=== PATIENT | female | born 1990 | race Caucasian/White ===

== ENCOUNTER 2018-08-27 16:04 | Outpatient (CLI) | payer OTHER ==
[~2018-08-27] VITALS: Ht 154.9 cm; Wt 89.6 kg
[2018-08-27] MEDS ORDERED: PRENTAB9 PO (16:19)
[2018-08-27] MEDS ORDERED: ZANTTAB PO (16:20)
[2018-08-27] MEDS ORDERED: TUMS500C PO (16:21)
[2018-08-27] MEDS ORDERED: UNIS25TA3 PO (16:21)
[2018-08-27 16:23] VITALS: BP 107/73
[2018-08-27] MEDS ORDERED: FLUCONAZOLE 50MG TABLET PO ONE (17:15)
[2018-08-27 17:39] LABS: APPEARANCE, URINE HAZY (CLEAR); BACTERIA, URINE AUTO 1+ (NEGATIVE); BILIRUBIN, URINE AUTO NEGATIVE (NEGATIVE); BLOOD, URINE BLOOD NEGATIVE (NEGATIVE); CALCIUM OXALATE CRYSTALS SMALL; COLOR, URINE YELLOW (YELLOW); GLUCOSE, URINE (UA) AUTO NEGATIVE (NEGATIVE); KETONE, URINE AUTO NEGATIVE (NEGATIVE); LEUKOCYTE ESTERASE, URINE AUTO 3+ (NEGATIVE); MUCUS, URINE SMALL (NEGATIVE); NITRITE, URINE AUTO NEGATIVE (NEGATIVE); PROTEIN, URINE AUTO NEGATIVE (NEGATIVE); RBC, URINE AUTO 18 /HPF (0-3); SPECIFIC GRAVITY URINE AUTO 1.004 (1.002-1.035); SQUAMOUS EPITHELIAL CELL UR AU 6 /HPF (0-6); UROBILINOGEN, URINE AUTO 0.2 mg/dL (0.0-2.0); WBC, URINE AUTO 5 /HPF (0-3)
[2018-08-27 17:40] VITALS: BP 102/59
--- NOTE | 2018-08-27 18:05 | REPVR ---
EXAM: US Biophysical Profile Without Non-Stress Test EXAM DATE/TIME: 08/27/2018 5:36 PM CLINICAL HISTORY: 28 years old, female; Condition or disease; Other: Decreased movement, fhr changes; ; Additional info: 32 weeks with decreased mvmt, heart rate changes TECHNIQUE: Imaging protocol: US biophysical profile without non-stress testing. COMPARISON: No relevant prior studies available. FINDINGS: Breathin/2 Gross body movements: 2/2 tone: 2/2 Qualitative amniotic fluid: 2/2 Umbilical cord Doppler demonstrates a peak systolic velocity of 51 cm/s, end-diastolic velocity of 18 cm/s and S/D of 2.8 RI of 0.65. Amniotic fluid live index 12.7 cm. heart rate 150 beats per minute. Cephalic presentation. Anterior placenta without evidence of a placenta previa. IMPRESSION: Biophysical profile score 8 out of 8 Electronically signed by: Kwan Hebert On 08/27/2018 18:05:11 PM
[2018-08-27 18:32] VITALS: BP 109/55
[2018-08-27 18:57] LABS: CHLAMYDIA DNA AMPLIFICATION NEGATIVE (NEGATIVE); GC DNA AMPLIFICATION NEGATIVE (NEGATIVE)
== END 2018-08-27 19:32 | disposition home or self-care (01) ==
LOC: M LDO 16:04
PROVIDERS: ATTEND Obstetrics & Gynecology
DX: O36.8130 Decreased fetal movements, third trimester, not applicable or unspecified (principal); Z3A.31 31 weeks gestation of pregnancy; N89.8 Other specified noninflammatory disorders of vagina; B37.3 Candidiasis of vulva and vagina; R11.0 Nausea; O26.893 Other specified pregnancy related conditions, third trimester
CPT/HCPCS: 59025; 76815; 76819; 76820; 81001; 87086; 87661; G0378; G0463

== ENCOUNTER 2018-08-31 09:09 | Outpatient (CLI) | payer OTHER ==
[~2018-08-31] VITALS: Ht 154.9 cm; Wt 84.1 kg
[~2018-08-31 09:09] MED LIST: PRENTAB9 PO; TUMS500C PO; UNIS25TA3 PO; ZANTTAB PO
[2018-08-31 09:36] VITALS: BP 95/52
--- NOTE | 2018-08-31 11:16 | IPNPDOC ---
Text Note Date of Service The patient was seen on 08/31/18. NOTE [id number] @ 11:03 28 yo G1 @ 32+3 by LMP([id number]) and 9+4 wk US on [id number] presents from clinic for prolonged FHR monitoring d/t regular CTXs and periodic variable decelerations noted on NST in clinic. APFTs are being done d/t hx of late decelerations noted on L&D @ 31+6 wks. Steroid complete (Aug). Evaluated by Dr. Roger in clinic and found to be closed/50%/high today. S: Pt resting in triage bed. Notes regular CTXs. Denies DFM, LOF, and vaginal bleeding. O: VS- WNL, afebrile FHR-BL 140, moderate variability, + accels, intermittent variable decelerations CTX- Q 2-5 min, lasting <90 sec, palpated as mild, resting tone palpated as soft A: 28 yo G1 @ 32+3 with regular CTXs, reactive NST with intermittent variable decelerations. P: Continue to monitor and assess. reassess in 4 hours or prn. [id number] @ 1455 S: Resting in triage bed. Notes CTXs. Denies DFM, LOF, and vaginal bleeding O: VS- WNL, afebrile FHR- BL-145, moderate variability, + accels, intermittent variable decelerations CTX- irregular, Lasting <90 sec, resting tone palpated as soft A: 28 you G1 @ 32+3 with irregular CTXs, Intermittent variable decelerations P: Continue to monitor and assess. reassess in 4 hours or prn [id number] @ 1630 RN called requesting Tums for patient. Ordered per request. [id number] @ 1918 S: Resting in triage bed. Continues to feel CTXs O: VS- WNL, febrile FHR- 150, moderate variability, + accels, intermittent variable decelerations CTXs- irregular, 6-10 min, lasting < 90 sec A: 28 yo G1 @ 32+3 with irregular CTXs, reactive NST with intermittent variable decelerations(CAT II) P: Cont to monitor and assess SBAR to Dr. Roger @ 1930 VS,[place], I+O VS, [place], I+O Vital Signs Date Time Temp Pulse Resp B/P (MAP) Pulse Ox O2 Delivery O2 Flow Rate FiO2 08/31/18 09:36 98.4 62 18 95/52 (66) GERALDO GASTON Aug 31, 2018 11:16
[2018-08-31 11:27] VITALS: BP 108/58
[2018-08-31 14:59] VITALS: BP 97/55
[2018-08-31] MEDS ORDERED: CALCIUM CARBONATE 500 MG CHEW U/D PO ONE (16:45)
[2018-08-31 16:54] VITALS: BP 101/56
[2018-08-31 19:08] VITALS: BP 108/52
[2018-08-31 21:32] VITALS: BP 109/58
--- NOTE | 2018-08-31 22:31 | IPNPDOC ---
Text Note Date of Service The patient was seen on 08/31/18. NOTE Triage Note Pushpa is a 28yo at 32w3d by LMP c/w 9wk u/s who presented to clinic this morning for routine APFT and was found to have regular ctx and a few variable FHR decels. APFTs are being done d/t hx of a prolonged decel noted on L&D @ 31+6 wks when she presented for DFM. She received prolonged monitoring during that stay and was made steroid complete (Aug), but ultimately discharged with plan for 2x/wk APFTs. In clinic today SCE was performed by me: closed/50%/high and TAUS was performed which showed cephalic, KMY 13cm, +FCA/FM and BPP 8/10. She was sent to L&D for prolonged monitoring and received >8hr of monitoring which was all reassuring. She notes ctx have spaced out, she feels good movement, no LOF/vaginal bleeding. Vitals wnl, afebrile Resting in bed comfortably SCE- see HPI FHRT: Cat I with +accels, mod darian, no further decels [place]: very irregular ctx Plan: -safe for discharge home -keep next NST appt on Tuesday -discussed return precautions at length Dr. Diane Roger MD A-FIB/CHADSVASC A-FIB History Current/History of A-Fib/PAF?: No Current Oral Anticoagulant The: No VS,Fishbone, I+O VS, Fishbone, I+O Vital Signs Date Time Temp Pulse Resp B/P (MAP) Pulse Ox O2 Delivery O2 Flow Rate FiO2 08/31/18 21:32 98.7 91 16 109/58 (75) Diane Roger MD Aug 31, 2018 22:07
== END 2018-08-31 21:35 | disposition home or self-care (01) ==
LOC: M LDO 09:09
PROVIDERS: ATTEND Midwife
DX: O47.03 False labor before 37 completed weeks of gestation, third trimester (principal); Z3A.32 32 weeks gestation of pregnancy
CPT/HCPCS: 59025; G0378; G0463

== ENCOUNTER 2018-09-18 09:29 | Outpatient (CLI) | payer OTHER ==
[~2018-09-18] VITALS: Ht 154.9 cm; Wt 85.4 kg
[2018-09-18 09:47] VITALS: BP 113/67
--- NOTE | 2018-09-18 12:06 | IPNPDOC ---
Text Note Date of Service The patient was seen on 09/18/18. NOTE Triage Note Pushpa is a 28yo at 35+wk by LMP c/w 9wk u/s who presented to clinic this morning for routine APFT and was found to have regular ctx and a few variable FHR decels (this same exact situation occurred on 31 August as well). APFTs are being done d/t hx of a prolonged decel noted on L&D @ 31+6 wks when she presented for DFM. She received prolonged monitoring during that stay and was made steroid complete (Aug), but ultimately discharged with plan for 2x/wk APFTs. She notes today her ctx feel stronger than normal (she has frequently had runs of ctx since 31wk). She feels good movement, no LOF/vaginal bleeding. F eels good movement. Vitals wnl, afebrile Resting in bed comfortably SCE closed/50%/high TAUS: cephalic presentation, KYM 11.5cm, +FCA/FM, anterior placenta FHRT: Cat I with +accels, mod darian, no further decels [place]: ctx q6-8 min A/P: No e/o labor despite consistent ctx. Reassuring status. -safe for discharge home -keep next NST appt on -discussed return precautions at length Dr. Diane Roger MD A-FIB/CHADSVASC A-FIB History Current/History of A-Fib/PAF?: No Current Oral Anticoagulant The: No VS,Fishbone, I+O VS, Fishbone, I+O Vital Signs Date Time Temp Pulse Resp B/P (MAP) Pulse Ox O2 Delivery O2 Flow Rate FiO2 09/18/18 09:47 98.5 85 18 113/67 (82) Diane Roger MD September 18, 2018 12:06
== END 2018-09-18 11:36 | disposition home or self-care (01) ==
LOC: M LDO 09:29
PROVIDERS: ATTEND Obstetrics & Gynecology
DX: O47.03 False labor before 37 completed weeks of gestation, third trimester (principal); Z3A.35 35 weeks gestation of pregnancy
CPT/HCPCS: 59025; 76815; G0378; G0463

== ENCOUNTER 2018-10-09 09:48 | Outpatient (CLI) | payer OTHER ==
[~2018-10-09] VITALS: Ht 154.9 cm; Wt 86.3 kg
[2018-10-09 10:05] VITALS: BP 99/64
== END 2018-10-09 11:00 | disposition home or self-care (01) ==
LOC: M LDO 09:48
PROVIDERS: ATTEND Obstetrics & Gynecology
DX: O47.9 False labor, unspecified (principal); Z3A.00 Weeks of gestation of pregnancy not specified
CPT/HCPCS: 59025; 76815; G0378; G0463

== ENCOUNTER 2018-10-23 17:46 | Inpatient (IN) | payer OTHER ==
[2018-10-23] VITALS (9 sets, daily range): BP systolic 87–118; BP diastolic 52–78
[~2018-10-23] VITALS: Ht 154.9 cm; Wt 87.3 kg
[2018-10-23] MEDS ORDERED: LACTATED RINGER'S 1000 ML IV STA (18:13)
--- NOTE | 2018-10-23 18:36 | HPEPDOC ---
Obstetrical History & Physical General Date of Admission Oct 23, 2018 at 17:46 History of Present Illness 27 y/o at 40+0 for scheduled IOL due to h/o decels noted at 32 weeks, tania Mora and has been doing NST's biweekly last 2 months. No LOF/VB/reg ctx's. Pos FM, having irreg ctx's. Preg c/b pos quad screen, seen at [facility] where they first saw a possible club foot but subsequent scans were normal, [id number] was neg. 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 history Past Medical History Medical History anxiety-no meds Surgical History: Appendectomy, Gallbladder, Tonsilectomy, Other (L wrist carpal tunnel, Left shouledr cuff) Family History Significant Family History: No pertinent family hx Social History Marital Status: Family situation: Spouse/partner home Psychosocial History: No pertinent psych hx * Smoker: non-smoker Alcohol: Denies Drugs: denies Abuse Violence Screening Have you been hit/kicked/slapp: No Have you been sexually assault: No Imunizations Tdap status: current Influenza Status: current Allergies Coded Allergies: codeine (Verified Allergy, Unknown, ANAPHYLAXIS, 08/27/18) Medications Scheduled Doxylamine Succinate (Unisom Sleep Aid) 25 Mg Tablet, 1 TAB PO QPM No.137/Iron/Folic Acd ( Vitamin Tablet) 1 Each Tablet, 1 TAB PO DAILY Miscellaneous Medications Ranitidine Hcl (Zantac) 150 Mg Tablet, 1 TAB PO Physical Examination Physical Examination GENERAL: Alert and oriented times three. ABDOMEN: Gravid and non-tender to touch. FETUS: Is vertex (VTX) by sterile vaginal examination (SVE), FT/80/-3 EXTREMITIES: No edema. Vital Signs/I&O Vital Signs Date Time Temp Pulse Resp B/P (MAP) Pulse Ox O2 Delivery O2 Flow Rate FiO2 10/23/18 18:13 98.6 78 16 118/73 (88) Laboratory Data 24[facility] Laboratory Tests 2 10/23/18 17:55: Serology Scanned Report Hepatitis B Testing Urine Culture: No Growth Pertinent Laboratoy Data Blood Type: O+ RBC Antibody Screen: Negative HIV: Negative Hepatitis B: Negative Hepatitis C: Unknown Rapid Plasma Reagin: Nonreactive Rubella: Immune Varicella: Immune Chlamydia/Gonorrhea: Negative Group B Streptococcus: Negative Quad Screen Test: Positive Cystic Fibrosis: Negative Glucose Tolerance Test: 149 Anatomy Ultrasound Placenta Location: Anterior Normal Anatomy: Yes (possible clubbed foot, ruled out) Placenta Previa: No Assessment Variability: Moderate Accelerations: Positive Decelerations: None Tocometer Contractions: Yes Frequency: irregular Assessment/Plan Assessment 40 weeks, h/o decels Plan Admit and orient. Wholesale Representative and consent. Diet: reg until pitocin, then clears Group B Streptococcus (GBS) neg Labs and intravenous (IV) per unit protocol. Counseled on Pitocin and induction of labor (IOL). Lactated Ringers (LR): Bolus 500 mL, then HL, then 1000 prior to epidural, 125 once on pitocin Anticipate normal spontaneous delivery () C-S as appropriate. Sessions MD BEARDEN,COURTNEY Gamino MD Oct 23, 2018 18:36
[2018-10-23 19:45] LABS: HEMATOCRIT 39.8 % (36.0-47.0); HEMOGLOBIN 13.6 g/dl (12.0-15.5); MEAN CORPUSCULAR HEMOGLOBIN 30.1 pg (27.0-33.0); MEAN CORPUSCULAR HGB CONC 34.2 g/dl (32.0-36.5); MEAN CORPUSCULAR VOLUME 88.1 fl (80.0-96.0); PLATELET COUNT, AUTOMATED 225 10^3/uL (150-450); RED BLOOD COUNT 4.52 10^6/uL (4.00-5.40); WHITE BLOOD COUNT 12.3 10^3/uL (4.0-10.0)
[2018-10-23] MEDS: miSOPROStol 50 MCG 1/2 TAB (S0191) PO PRN (19:51)
[2018-10-24] VITALS (40 sets, daily range): BP systolic 89–122; BP diastolic 50–76
[2018-10-24] MEDS: miSOPROStol 50 MCG 1/2 TAB (S0191) PO PRN ×2 (00:11→04:44)
[2018-10-24] MEDS: LR 1,000 ML IV SCH ×2 (11:05→17:58)
--- NOTE | 2018-10-24 11:23 | IPN ---
DATE: 10/24/2018 This lady is a 28-year-old 1, para 0 who was admitted at 40 and 1 weeks of gestation for induction of labor. At 32 weeks of gestation she had a nonreassuring heart after which she was monitored. She had AFIs, NSTs, biophysical profiles all within normal limits. She came in for induction of labor and was given three lots of Cytotec with minimal effect. She was 1 cm on admission when she was administered the Cytotec. Presently in evaluating her, she is having contractions of mild intensity intermittently 1-1/2 to 2 minutes apart, however not regular and she has a category 1 strip. Her blood pressure is 118/75, respirations are 16, pulse 77, temperature 97.9. She is Group B Streptococcus (GBS) negative. On examination the presenting part is not in the pelvis, it is vertex, fingertip, very posterior, soft, 50% effaced, similar to what she had when she was admitted 12-14 hours ago. Our plan of management discussed with the patient is as follows: We will attempt to put a Beltran bulb in as she is having 1-1/2 to 2-minute contractions, do not want to engage with Pitocin at the present time. She is not a candidate for rupture of membranes because the head is high. We explained the process of Beltran bulb insertion and the patient is going to have breakfast, shower and then we will attempt to put a Beltran bulb in. The patient accepted expressed understanding. All questions were answered, a 20-minute discussion.
[2018-10-24] MEDS ORDERED: LACTATED RINGER'S 1000 ML IV ONE (11:30)
[2018-10-24] MEDS ORDERED: raNITIdine SYRUP 150 MG/10 ML UDC PO ONE (12:00)
--- NOTE | 2018-10-24 13:05 | IPN ---
DATE: 10/24/2018 After adequate explanation we attempted to do a Beltran bulb Cook catheter. Sterile speculum examination the cervix is very posterior, fingertip maybe, soft, -3 station, has come down with contractions. We attempted several times either digitally or with speculum to place the Cook catheter, we were unable to do so, could not negotiate the catheter in because it was not dilated enough to accept even the small bulb catheter. We then were able to get a amniohook in and ruptured the membranes, clear liqua, moderate amount, category 1 strip. We will give her a couple of hours to see if she actively progresses and if not, hopefully the cervix will be negotiable to reestablish a Beltran bulb catheter possible use of Pitocin. The patient accepted the procedure well. She also asked for Zantac for her gastroesophageal reflux disease (GERD). We ordered 150 mg of Zantac for the patient.
[2018-10-24] MEDS ORDERED: OXYTOCIN DRIP 30 UNITS in APPROPRIATE DILUENT 1 EA IV SCH (15:45)
--- NOTE | 2018-10-24 16:42 | IPN ---
DATE: 10/24/2018 INTERIM NOTE This lady is being induced, being at 40 and 1 weeks of gestation. She had had three lots of Cytotec and was basically 1 cm dilated at that time with inability to put in a Beltran bulb catheter. On examination initially she was having a category one strip with intermittent contractions and again an attempt with a sterile speculum examination for a Beltran bulb catheter was unsuccessful as the cervix was not dilated enough to accept the Beltran bulb. However, we were able to do an artificial rupture of membranes (ARM) as the head became well applied to the cervix and she had clear liquor. Category one strip, but she had contractions that are about 5 minutes apart, and she is really not feeling them. After a discussion with the patient, the fact that her blood pressure is 113/55, respirations 16, pulse 70, temperature is 97.4 with a category one strip, we were going to augment her with Pitocin and reevaluate her in 2-3 hours time. The patient and expressed understanding of the plan of care. Safe to proceed.
[2018-10-24] MEDS ORDERED: PROMETHAZINE INJ 25 MG/ML VIAL (J2550) IV ONE (18:15)
[2018-10-24] MEDS ORDERED: BUTORPHANOL 2 MG/ML INJ (J0595) IV ONE (18:15)
[2018-10-24] MEDS ORDERED: FENTANYL 2MCG/ML ROPIVACAINE 0.2% IN 0.9% NACL 100ML IVBAG As Ordered ONE (21:05)
[2018-10-24 21:21] LABS: HEMATOCRIT 35.4 % (36.0-47.0); MEAN CORPUSCULAR HEMOGLOBIN 29.9 pg (27.0-33.0); MEAN CORPUSCULAR HGB CONC 33.9 g/dl (32.0-36.5); MEAN CORPUSCULAR VOLUME 88.1 fl (80.0-96.0); PLATELET COUNT, AUTOMATED 184 10^3/uL (150-450); RED BLOOD COUNT 4.02 10^6/uL (4.00-5.40); WHITE BLOOD COUNT 19.6 10^3/uL (4.0-10.0)
[2018-10-25] VITALS (12 sets, daily range): BP systolic 90–115; BP diastolic 46–67
[2018-10-25] MEDS ORDERED: NALOXONE INJ 0.4 MG/1 ML VIAL (J2310) IV PRN (00:45)
[2018-10-25] MEDS ORDERED: diphenhydrAMINE INJ 50MG/ML VIAL (J1200) IV PRN (00:45)
[2018-10-25] MEDS ORDERED: ePHEDrine SULFATE 25 MG/5 ML(5MG/ML) SYRINGE IV PRN (00:45)
[2018-10-25] MEDS ORDERED: ONDANSETRON 4MG/2ML VIAL (J2405) IV PRN ×2 (00:45→06:00)
[2018-10-25] MEDS ORDERED: EPIDURAL/PCA KEYS XX PRN (00:45)
[2018-10-25] MEDS ORDERED: LACTATED RINGER'S 1000 ML IV PRN (00:45)
[2018-10-25] MEDS ORDERED: REFRIGERATOR IV KEYS XX PRN (00:45)
[2018-10-25] MEDS ORDERED: EPIDURAL COMMENT XX SCH (00:45)
[2018-10-25] MEDS ORDERED: FENTANYL/ROPIVACAINE/NACL BAG 100 ML EPIDURAL SCH (00:45)
[2018-10-25] MEDS ORDERED: AZITHROMYCIN INJ 500MG VIAL (J0456) As Ordered ONE (03:07)
[2018-10-25] MEDS ORDERED: BICITRA 30ML SOLN UDC As Ordered ONE (03:08)
[2018-10-25] MEDS ORDERED: ceFAZolin 2 GM/D5W 50 ML IV BAG (J0690 PER 500MG) As Ordered ONE (03:09)
[2018-10-25] MEDS ORDERED: AZITHROMYCIN INJ 500 MG, VIAL MATE ADAPTER 1 EACH in D5W 250 ML IV ONE (03:15)
[2018-10-25] MEDS ORDERED: BICITRA 30ML SOLN UDC PO ONE (03:15)
[2018-10-25] MEDS ORDERED: BUPIVACAINE HCL 0.25% 10 ML VIAL SC ONE (03:15)
[2018-10-25] MEDS ORDERED: ACETAMINOPHEN 650 MG SUPP PR SCH (03:15)
[2018-10-25] MEDS ORDERED: ONDANSETRON 4MG/2ML VIAL (J2405) As Ordered ONE (04:05)
[2018-10-25] MEDS ORDERED: LIDOCAINE 2% W/EPIN INJ 20ML **PRES FREE As Ordered ONE (04:05)
[2018-10-25] MEDS ORDERED: OXYTOCIN INJ 10 UNITS/ML VIAL (J2590) As Ordered ONE (04:05)
[2018-10-25] MEDS ORDERED: MEPERIDINE 50 MG/ML 1ML VIAL (J2175) As Ordered ONE (04:13)
[2018-10-25] MEDS ORDERED: MORPHINE PRES-FREE INJ 10 MG/10 ML VIAL (J2274) As Ordered ONE (04:13)
[2018-10-25] MEDS ORDERED: METOCLOPRAMIDE INJ 10MG/2ML VIAL (J2765) As Ordered ONE (04:14)
[2018-10-25 04:46] LABS: CORD GAS ABE V -2.9; CORD GAS HCO3 A 26.1 MEQ/L; CORD GAS O2 SAT A 32.5 %; CORD GAS O2 SAT V 80.1 %; CORD GAS PCO2 V 38.9 mmHg; CORD GAS PH A 7.271 UNITS; CORD GAS PH V 7.37 UNITS; CORD GAS PO2 A 18.4 mmHg; CORD GAS PO2 V 36.1 mmHg; CORD GAS SBC A 21.3 MEQ/L; CORD GAS SBC V 21.6 MEQ/L; CORD GAS TCO2 A 27.9 MEQ/L; CORD GAS TCO2 V 23.2 MEQ/L
[2018-10-25] MEDS ORDERED: OXYTOCIN DRIP 30 UNITS in APPROPRIATE DILUENT 1 EA IV SCH (05:02)
[2018-10-25] MEDS ORDERED: LR 1,000 ML IV SCH (05:02)
[2018-10-25] MEDS ORDERED: MOM 30ML SUSPENSION UDC PO PRN (05:15)
[2018-10-25] MEDS ORDERED: NORCO, ANEXSIA 5/325MG TABLET (HYDROcodone/ACETAMINOPHEN) PO PRN ×2 (05:15)
[2018-10-25] MEDS ORDERED: MEASLES,MUMPS,RUBELLA VACCINE INJ (MMR-II) (90707) SC SCH (05:15)
[2018-10-25] MEDS ORDERED: DOCUSATE SODIUM 100 MG CAP PO PRN (05:15)
[2018-10-25] MEDS ORDERED: OXYTOCIN INJ 10 UNITS/ML VIAL (J2590) IV ONE (05:15)
[2018-10-25] MEDS ORDERED: RHOGAM 300 MCG (1500 IU) INJ (J2790) IM SCH (05:15)
[2018-10-25] MEDS ORDERED: KETOROLAC 30 MG/ML VIAL (J1885) As Ordered ONE (05:54)
[2018-10-25] MEDS ORDERED: KETOROLAC 30 MG/ML VIAL (J1885) IV PRN (06:00)
[2018-10-25] MEDS ORDERED: MEPERIDINE INJ 25 MG/ML VIAL (J2175) IV PRN (06:00)
[2018-10-25] MEDS: KETOROLAC 30 MG/ML VIAL (J1885) IV SCH ×3 (07:28→18:30)
[2018-10-25] MEDS: PRENATAL VITAMINS CHEWABLE TABLET PO SCH (09:00)
--- NOTE | 2018-10-25 10:45 | IPN ---
DATE: 10/25/2018 This lady is a 1, para 0, who is admitted for induction of labor. She had three lots of Cervidil. She subsequently had artificial rupture of membranes (AROM) draining clear liquid. She eventually got to full dilatation with epidural in place. She had couple of variables, one to two lates with good recovery. On examination with pushing and adequate contractions, she was unable to negotiate the mid pelvis and the presenting part would not come down with the aggressive pushing. At this point, we discussed the risks and benefits of section in that with an obstructed labor and there seems to be some kind of obstruction related to the bone at the symphysis pubis, in other words the baby cannot negotiate to get under the symphysis pubis, that further pushing would be not be effective in completing to a vaginal delivery. Also, the risks of section including hemorrhage, infection, perforation, remote possibility of hysterectomy, remote possibility of blood transfusion, remote possibility of the baby entering the intensive care unit (NICU) or laceration of the fetus. The patient expressed understanding of all these complications and risks, signed and witnessed the consent form, and we are awaiting anesthesia for interval analgesia. Neonatology was informed of our section.
[2018-10-25] MEDS ORDERED: diphenhydrAMINE 25 MG CAP PO PRN (17:15)
[2018-10-26] MEDS: IBUPROFEN 800 MG TAB PO SCH ×3 (02:07→18:11)
[2018-10-26 02:22] VITALS: BP 101/60
[2018-10-26 05:50] VITALS: BP 94/55
[2018-10-26 07:17] LABS: HEMATOCRIT 28.8 % (36.0-47.0); MEAN CORPUSCULAR HEMOGLOBIN 30.7 pg (27.0-33.0); MEAN CORPUSCULAR HGB CONC 34.4 g/dl (32.0-36.5); MEAN CORPUSCULAR VOLUME 89.2 fl (80.0-96.0); PLATELET COUNT, AUTOMATED 146 10^3/uL (150-450); RED BLOOD COUNT 3.23 10^6/uL (4.00-5.40); WHITE BLOOD COUNT 10.9 10^3/uL (4.0-10.0)
[2018-10-26 07:25] LABS: HEMOGLOBIN 9.9 g/dl (12.0-15.5)
[2018-10-26] MEDS: PRENATAL VITAMINS CHEWABLE TABLET PO SCH (07:44)
[2018-10-26 10:00] VITALS: BP 96/52
--- NOTE | 2018-10-26 10:32 | RO ---
DATE OF PROCEDURE: 10/25/2018 PREOPERATIVE DIAGNOSES: Failure to descend, failure progress, obstructive labor. POSTOPERATIVE DIAGNOSES: Failure to descend, failure progress, obstructive labor. Brow presentation. OPERATION PROPOSED: Primary section. OPERATION PERFORMED: Primary section. SURGEON: Dr. Ricardo Daily. TELEGRAPHIC TYPEWRITER REPAIRER: Dr. Adams Sam for extraction, retraction and visualization. ANESTHESIA: Epidural plus local anesthetic for intraperitoneal procedures. ESTIMATED BLOOD LOSS: 300 mL DESCRIPTION OF PROCEDURE: After adequate time-out, prepped and draped in a supine position. Beltran catheter bladder draining clear urine. Acetaminophen suppository 1300 mg per rectum, sequentials in place and antibiotics appropriately given. Pfannenstiel incision was made two fingerbreadths above symphysis pubis passing through abdominal layers securing hemostasis. What was interestingly noted the sides of her vulva being extremely swollen. The intra-abdominal organs, the uterus, the bladder, the peritoneal surfaces were all significantly swollen and boggy from prolonged pushing and prolonged labor. Bladder was reflected well down anteriorly. Low transverse incision was made into the uterus with clear liquid and initially popped out an ear. The baby was in the Brow presentation. Delivered live male weighing 3450 gram 7 pounds 10 ounces, of 9 and 9 at one and five minutes respectively. Arterial pH was 7.27, base excess -2.0, venous pH 7.37, base excess -2.9. Cord was around the neck once, around the body, once in the groin and this is probably related to why she had spontaneous decelerations at 32 weeks of gestation with continued monitoring The placenta was manually removed and appeared to be quite calcified. The uterus, as mentioned, was edematous and boggy. Pitocin 5 units and then running Pitocin was able to firm up the uterus. The lower segment as documented was quite swollen was closed with two layers with imbricating the second layer and then re-peritonealized station of the bladder flap. With instrument and pad count correct and the estimated blood loss of 300 mL, ovaries and tubes appeared to be normal. The abdomen was then closed with running stitch for the perineum, same for the fascia, interrupted for subcu, Dexon to the skin. Marcaine 0.25% 10 mL of spray and Telfa and finally massage and compression of the uterus revealed some clots but the uterus was well contracted. The patient and baby tolerating procedure well.
[2018-10-26] MEDS: ACETAMINOPHEN 500 MG TAB PO PRN ×2 (11:40→20:05)
[2018-10-26 14:00] VITALS: BP 97/56
[2018-10-26 18:00] VITALS: BP 103/56
[2018-10-26 22:00] VITALS: BP 110/67
--- NOTE | 2018-10-26 22:02 | IPN ---
DATE: 10/26/2018 Postop day 1. This lady had a primary section for a brow presentation of a live male infant 3450 grams, 7 pounds 10 ounces, Apgars of 9 and 9 and one and five minutes respectively. On her first day we discussed phlebitis, cystitis, mastitis, metritis and cellulitis, diet, exercise pain management, perineal, breast and wound care. Presently is breast-feeding; doing well. Her blood pressure 97/56, respirations are 18, pulse 63, temperature is 99.4. Her admitting hemoglobin was 13.6, hematocrit 39.8 and platelets were 225. day #1 hemoglobin was 9.9, hematic 28.8 and platelets are 146. The rest of the examination is unremarkable. Normocephalic, atraumatic. Neck: Full range of motion. Pupils equal and reactive to light. Distal pulses are symmetric. No evidence of deep venous thrombosis (DVT), pulmonary embolism (PE) or superficial phlebitis. Chest is clear bilaterally at bases. No wheezes or rhonchi. No CVA tenderness. Abdomen: Soft. Four quadrant bowel sounds are noted. Incision is clean and dry. Uterus 2 below. Lochia is moderate. SUMMARY: We have a term gestation delivered a live male infant. PLAN: For discharge tomorrow morning. Medications will be dispensed. 6-week control will be discussed.
[2018-10-27] MEDS: IBUPROFEN 800 MG TAB PO SCH ×2 (02:48→10:21)
[2018-10-27 06:00] VITALS: BP 112/68
[2018-10-27] MEDS ORDERED: PRENCHW PO (07:13)
[2018-10-27] MEDS ORDERED: HYDR-4571 PO (07:13)
[2018-10-27] MEDS ORDERED: COLA100C5 PO (07:13)
[2018-10-27] MEDS ORDERED: IBUP80TA PO (07:13)
[2018-10-27] MEDS: PRENATAL VITAMINS CHEWABLE TABLET PO SCH (08:40)
--- NOTE | 2018-10-28 08:58 | IPN ---
DATE: 10/25/2018 This patient has requested circumcision of their male infant after discussing risks and benefits of circumcision, the medical and nonmedical indications, penile block and aftercare. Expressed understanding of penile block, aftercare and bleeding, signed the consent form. All questions were answered. 20-minute discussion. We await the clearance by the route sales trainee.
== END 2018-10-27 11:50 | disposition home or self-care (01) | DRG 773 ==
LOC: M LDI 17:46 → M OBS 10-25 06:49
PROVIDERS: ADMIT Obstetrics & Gynecology; ATTEND Obstetrics & Gynecology
PROC: 10D00Z1 Extraction of Products of Conception, Low, Open Approach (ICD-10-PCS; principal; 2018-10-25 03:19)
DX: O48.0 Post-term pregnancy (principal); Z37.0 Single live birth; Z3A.40 40 weeks gestation of pregnancy; Z88.5 Allergy status to narcotic agent; O32.4XX0 Maternal care for high head at term, not applicable or unspecified; O62.0 Primary inadequate contractions; K21.9 Gastro-esophageal reflux disease without esophagitis; O99.62 Diseases of the digestive system complicating childbirth

== ENCOUNTER → 2019-08-24 | Outpatient (REF) | payer OTHER ==
[~2019-08-24] MED LIST changes: +COLA100C5 PO; +HYDR-4571 PO; +IBUP80TA PO; +PRENCHW PO; +ZANT150T40 PO; -ZANTTAB PO
[2019-08-24 20:18] LABS: HEMATOCRIT 41.7 % (36.0-47.0); HEMOGLOBIN 13.8 g/dl (12.0-15.5); MEAN CORPUSCULAR HEMOGLOBIN 28.9 pg (27.0-33.0); MEAN CORPUSCULAR HGB CONC 33.1 g/dl (32.0-36.5); MEAN CORPUSCULAR VOLUME 87.4 fl (80.0-96.0); PLATELET COUNT, AUTOMATED 333 10^3/uL (150-450); RED BLOOD COUNT 4.77 10^6/uL (4.00-5.40); WHITE BLOOD COUNT 7.8 10^3/uL (4.0-10.0)
[2019-08-24 20:27] LABS: ALBUMIN 4.2 GM/DL (3.2-5.2); ALT/SGPT 53 U/L (12-78); AMYLASE 34 U/L (25-115); BILIRUBIN,TOTAL 0.5 MG/DL (0.2-1.0); BLOOD UREA NITROGEN 13 MG/DL (7-18); CALCIUM LEVEL 9.1 MG/DL (8.5-10.1); CARBON DIOXIDE LEVEL 26 MEQ/L (21-32); CHLORIDE LEVEL 107 MEQ/L (98-107); CREATININE FOR GFR 0.86 MG/DL (0.55-1.30); GLOMERULAR FILTRATION RATE > 60.0 (>60); GLUCOSE, FASTING 89 MG/DL (70-100); LIPASE 150 U/L (73-393); SODIUM LEVEL 140 MEQ/L (136-145); TOTAL PROTEIN 7.5 GM/DL (6.4-8.2)
== END ==
LOC: M SFHCLERA 15:24
PROVIDERS: ATTEND Physician Assistant
DX: R10.84 Generalized abdominal pain (principal); R11.2 Nausea with vomiting, unspecified
CPT/HCPCS: 80053; 81002; 81025; 82150; 83690; 85027; G0463

== ENCOUNTER 2019-12-12 09:15 | Day surgery (SDC) | payer OTHER ==
--- NOTE | 2020-01-16 11:27 | ROOR ---
Patient Name: Pushpa Odell Procedure Date: 12/12/2019 9:40 AM Date of : 1990 Age: 29 Room: [facility] Gender: Female Note Status: Manager Business Systems Override Procedure: Upper Endoscopy + Biopsies Indications: Heartburn, Exclusion of ulcer of the GI tract, Nausea with vomiting Providers: Jairo Basurto MD Referring MD: JALEEL MARMOLEJO MD Requesting Provider: Medicines: Monitored Anesthesia Care Complications: No immediate complications. Procedure: Pre-Anesthesia Assessment: - The heart rate, respiratory rate, oxygen saturations, blood pressure, adequacy of pulmonary ventilation, and response to care were monitored throughout the procedure. The Endoscope was introduced through the mouth, and advanced to the second part of duodenum. The upper GI endoscopy was accomplished without difficulty. The patient tolerated the procedure well. Findings: The Z-line was variable and was found 30 cm from the incisors. Multiple biopsies were obtained with cold forceps for evaluation to rule out Adames's Esophagus randomly at the gastroesophageal junction. A small hiatal hernia was present. No other significant abnormalities were identified in a careful examination of the stomach. Biopsies were taken with a cold forceps in the gastric antrum for Helicobacter pylori testing. The exam of the duodenum was otherwise normal. Impression: - Z-line variable, 30 cm from the incisors. - Small hiatal hernia. - Multiple biopsies were obtained at the gastroesophageal junction. - Biopsies were taken with a cold forceps for Helicobacter pylori testing. - The examination was otherwise normal. Recommendation: - Patient has a contact number available for emergencies. The signs and symptoms of potential delayed complications were discussed with the patient. Return to normal activities tomorrow. Written discharge instructions were provided to the patient. - Discharge patient to home. - Continue present medications. - Await pathology results. - Telephone GI clinic for pathology results in 1 week. - Return to referring physician. - The findings and recommendations were discussed with the patient. Jairo Basurto MD Jairo Basurto MD 12/12/2019 9:59:40 AM Electronically signed by Jairo Basurto MD Number of Addenda: 0 Note Initiated On: 12/12/2019 9:40 AM Estimated Blood Loss: Estimated blood loss: none.
--- NOTE | 2020-01-16 11:28 | ROOR ---
Patient Name: Pushpa Odell Procedure Date: 12/12/2019 9:41 AM Date of : 1990 Age: 29 Room: [facility] Gender: Female Note Status: Finalized Procedure: Total Colonoscopy to Cecum + ileoscopy + Bx Indications: Lower abdominal pain, Clinically significant diarrhea of unexplained origin Providers: Jairo Basurto MD Referring MD: JALEEL MARMOLEJO MD Requesting Provider: Medicines: Monitored Anesthesia Care Complications: No immediate complications. Procedure: Pre-Anesthesia Assessment: - The heart rate, respiratory rate, oxygen saturations, blood pressure, adequacy of pulmonary ventilation, and response to care were monitored throughout the procedure. The Colonoscope was introduced through the anus and advanced to the terminal ileum, with identification of the appendiceal orifice and IC valve. The colonoscopy was performed without difficulty. The patient tolerated the procedure well. The quality of the bowel preparation was excellent. Findings: The perianal and digital rectal examinations were normal. No other significant abnormalities were identified in a careful examination of the remainder of the colon. The terminal ileum appeared normal. Biopsies for histology were taken with a cold forceps from the ascending colon, transverse colon and descending colon for evaluation of microscopic colitis. The exam was otherwise without abnormality on direct and retroflexion views. Impression: - The examined portion of the ileum was normal. - The examination was otherwise normal on direct and retroflexion views. - Biopsies were taken with a cold forceps from the ascending colon, transverse colon and descending colon for evaluation of microscopic colitis. - The exam was otherwise normal to the cecum. Recommendation: - Patient has a contact number available for emergencies. The signs and symptoms of potential delayed complications were discussed with the patient. Return to normal activities tomorrow. Written discharge instructions were provided to the patient. - High fiber diet. - Discharge patient to home. - Continue present medications. - Await pathology results. - Telephone GI clinic for pathology results in 1 week. - Return to referring physician. - Repeat colonoscopy at age 52 for screening purposes. - The findings and recommendations were discussed with the patient. Jairo Basurto MD Jairo Basurto MD 12/12/2019 10:12:00 AM Number of Addenda: 0 Note Initiated On: 12/12/2019 9:41 AM Estimated Blood Loss: Estimated blood loss: none.
== END 2019-12-12 12:25 | disposition home or self-care (01) ==
LOC: M SDC 09:15
PROVIDERS: ATTEND Internal Medicine Gastroenterology
DX: R10.30 Lower abdominal pain, unspecified (principal); R19.7 Diarrhea, unspecified; K22.8 Other specified diseases of esophagus; K44.9 Diaphragmatic hernia without obstruction or gangrene; R12 Heartburn; R11.2 Nausea with vomiting, unspecified; Z88.5 Allergy status to narcotic agent

== ENCOUNTER → 2020-06-06 | Outpatient (CLI) | payer OTHER ==
--- NOTE | 2020-06-06 09:14 | REP ---
INDICATION: R11.2-NAUSEA WITH VOMITING. COMPARISON: None. TECHNIQUE/RADIOTRACER AND DOSE: 1.05 mCi of Technetium-99m sulfur colloid was ingested in two scrambled eggs and 6 ounces of water and sequential anterior and posterior images are acquired for an 89-minute imaging observation period. Regions of interest are drawn around the stomach to plot gastric emptying. FINDINGS: Expected T1/2 is 90 minutes. Fifty-three% emptying is observed in this patient during the 89-minute imaging observation period, for a calculated T1/2 in this patient of 85 minutes. IMPRESSION: Normal gastric emptying. <Electronically signed by Brody Ribera > 06/06/20 [id number]
== END ==
LOC: M RAD 07:02
PROVIDERS: ATTEND Specialist
DX: R11.2 Nausea with vomiting, unspecified (principal); R10.13 Epigastric pain; R19.7 Diarrhea, unspecified
CPT/HCPCS: 78264; A9541

== ENCOUNTER → 2020-07-31 | Outpatient (CLI) | payer OTHER ==
--- NOTE | 2020-07-31 08:26 | REP ---
INDICATION: NAUSEA/VOMITING. COMPARISON: None. TECHNIQUE: Complete abdominal sonography. FINDINGS: Scanning through the right upper quadrant of the abdomen demonstrates a normal sized and walled gallbladder without evidence of stone or polyp. Common bile duct is normal measuring 0.7 cm in greatest diameter. No focal liver lesion is seen. Liver is not felt to be enlarged. No pancreatic abnormality is observed. Scanning in the left upper quadrant demonstrates a normal size homogeneous spleen measuring 9.6 cm in greatest diameter. Normal caliber aorta is seen. There is no evidence of ascites. Renal cortical echogenicity pattern is normal and contours are smooth bilaterally. No mass or hydronephrosis is seen on either side. Right renal dimensions are 10.9 x 5.1 x 4.8 cm. The left kidney measures 12.7 x 5.2 x 4.9 cm. IMPRESSION: Unremarkable complete abdominal sonography. <Electronically signed by Brody Ribera > 07/31/20 [id number]
== END ==
LOC: M RAD 07:32
PROVIDERS: ATTEND Specialist
DX: R11.2 Nausea with vomiting, unspecified (principal)